=== PATIENT | male | born 1980 | race Caucasian/White ===

== ENCOUNTER 2018-02-19 18:01 | Emergency (ER) | payer BC ==
[~2018-02-19] VITALS: Ht 172.7 cm; Wt 88.9 kg
[~2018-02-19 18:01] MED LIST: Coq-10100 MG PO; FEBU40TA PO; FISH1000 PO; Hydrocodone-Ap1 EA23 PO; LOSA50 PO; METO100ER PO; MULVITMIND PO; PRAVASTATIN SOD10 MG PO; Prilosec Otc20 MG PO; WARF4 PO; [UNRECOGNIZED DRUG - OTHER] PO
[2018-02-19] MEDS ORDERED: CARV25 PO (19:06)
[2018-02-19] MEDS ORDERED: ENTRESTO 97 MG1 EACH PO (19:06)
[2018-02-19] MEDS ORDERED: WARF7.5 PO ×2 (19:06→19:07)
[2018-02-19] MEDS ORDERED: SPIR25 PO (19:06)
[2018-02-19] MEDS ORDERED: PRAV20 PO (19:07)
[2018-02-19] MEDS ORDERED: Coq-10100 MG PO (19:07)
[2018-02-19] MEDS ORDERED: OMEPRAZOLE MAGN20 MG PO (19:08)
[2018-02-19] MEDS ORDERED: FEBU40TA PO (19:08)
[2018-02-19] MEDS ORDERED: CHOL10002 PO (19:08)
[2018-02-19] MEDS ORDERED: Norco 5-325 Ta1 EACH PO (19:50)
== END 2018-02-19 20:02 | disposition home or self-care (01) ==
LOC: ER 18:01
DX: S09.90XA Unspecified injury of head, initial encounter (principal); S20.212A Contusion of left front wall of thorax, initial encounter; S70.02XA Contusion of left hip, initial encounter; W22.8XXA Striking against or struck by other objects, initial encounter
CPT/HCPCS: 36415; 70450; 71101; 73502; 93005; 93010; 96374; 99284; J3010

== ENCOUNTER 2019-03-19 08:34 | Emergency (ER) | payer OTHER, BC ==
[~2019-03-19] VITALS: Ht 172.7 cm; Wt 79.8 kg
[~2019-03-19 08:34] MED LIST changes: +CARV25 PO; +CHOL10002 PO; +ENTRESTO 97 MG1 EACH PO; +Norco 5-325 Ta1 EACH PO; +OMEPRAZOLE MAGN20 MG PO; +PRAV20 PO; +SPIR25 PO; +WARF7.5 PO
[2019-03-19] MEDS ORDERED: ALLO300 PO (09:17)
== END 2019-03-19 09:40 | disposition home or self-care (01) ==
LOC: ER 08:34
DX: S09.90XA Unspecified injury of head, initial encounter (principal); V47.5XXA Car driver injured in collision with fixed or stationary object in traffic accident, initial encounter; Z79.899 Other long term (current) drug therapy; Z79.01 Long term (current) use of anticoagulants; I50.9 Heart failure, unspecified; F17.220 Nicotine dependence, chewing tobacco, uncomplicated
CPT/HCPCS: 36415; 70450; 99284-25

== ENCOUNTER 2024-05-07 11:25 | Emergency (ER) | payer BC ==
[~2024-05-07] VITALS: Ht 172.7 cm; Wt 83.9 kg
[~2024-05-07 11:25] MED LIST changes: +ALLO300 PO
[2024-05-07 11:48] VITALS: BP 124/92
[2024-05-07] MEDS ORDERED: FARXIGA10 MG PO (12:05)
[2024-05-07 13:39] LABS: International Normalized Ratio 3.17; Prothrombin Time Results 31.1 Sec (9.7-11.5)
== END 2024-05-07 14:01 | disposition home or self-care (01) ==
LOC: ER 11:25
PROVIDERS: Emergency Medicine
DX: H53.122 Transient visual loss, left eye (principal); F17.220 Nicotine dependence, chewing tobacco, uncomplicated; Z79.01 Long term (current) use of anticoagulants; Z79.899 Other long term (current) drug therapy
CPT/HCPCS: 85610; 85730; 99284